=== PATIENT | female | born 1945 | race Caucasian/White ===

== ENCOUNTER → 2017-04-17 16:33 | Outpatient (CLI) | payer MEDICARE, OTHER ==
[2014-05-06 12:25] VITALS: BMI 33.7
[~2017-04-17 16:33] MED LIST: ACETAMINOPHEN500 M1 PO; ACIDOPHILUS LAC1 CAP PO; AMITIZA24 MCG PO; BEPREVE10 ML EACH EYE; BIOTIN5 MG PO; CALCIUM 600+D T1 TA1 PO; CEREFOLIN TAB1 TAB PO; CINNAMON500 MG PO; DEXILANT60 MG PO; DURAGESIC1 PATCH .1 TRANSDERM; FISH OIL 1,0001 CA1 PO; GLUCOPHAGE850 MG PO; GLUCOSAMINE HC500 MG PO; HYDROCODON-ACE1 EAC7 PO; INDERAL 40 MG T40 MG PO; LASIX20 MG PO; LIDODERM 5 %1 PATCH TRANSDERM; LYRICA50 MG PO; METROGEL 0.75 %45 GM TOPICAL; MILK THISTLE140 MG PO; MUCINEX600 MG PO; NEURONTIN 300300 MG PO; NIZORAL 2 % CRE15 GM TOPICAL; NYSTATIN OINTME15 GM TOPICAL; OCUVITE TABLET1 TA1 PO; OSCIMIN0.125 M1 PO; PHAZYME180 MG PO; PHENERGAN25 M1 PO; POTASSIUM CHLO10 ME1 PO; REQUIP1 MG PO; SYNTHROID125 MCG PO; TRIAMTERENE-HCT1 TA1 PO; VOLTAREN100 GM TOPICAL; ZOFRAN4 MG PO; ZYLOPRIM100 MG
== END | disposition home or self-care (01) ==
LOC: D.MAMMO 11:30
DX: Z12.31 Encounter for screening mammogram for malignant neoplasm of breast (principal)

== ENCOUNTER → 2017-09-07 09:01 | Outpatient (CLI) | payer MEDICARE, OTHER ==
[2014-05-06 12:25] VITALS: BMI 33.7
== END | disposition home or self-care (01) ==
LOC: D.MRI 09-06 08:00 → D.LAB 09:01 → D.MRI 10:00
DX: S06.0X9A Concussion with loss of consciousness of unspecified duration, initial encounter (principal); X58.XXXA Exposure to other specified factors, initial encounter; R51 Headache

== ENCOUNTER → 2018-02-22 13:39 | Outpatient (CLI) | payer MEDICARE, OTHER ==
[2014-05-06 12:25] VITALS: BMI 33.7
== END | disposition home or self-care (01) ==
LOC: D.CT 02-21 13:30
DX: R10.9 Unspecified abdominal pain (principal)

== ENCOUNTER → 2018-04-16 08:59 | Outpatient (CLI) | payer MEDICARE, OTHER ==
[2014-05-06 12:25] VITALS: BMI 33.7
[2018-04-16 09:44] LABS: ALBUMIN 3.6 g/dL (3.4-5.0); BILIRUBIN - DIRECT 0.23 mg/dL (0.00-0.30); BILIRUBIN - INDIRECT 0.74 mg/dL (0.00-1.00); BILIRUBIN - TOTAL 0.97 mg/dL (0.2-1.3); PROTEIN - SERUM 7.5 g/dL (6.4-8.2)
== END | disposition home or self-care (01) ==
LOC: D.LAB 08:30 → D.US 09:30
PROVIDERS: ATTEND Internal Medicine Gastroenterology
DX: R16.2 Hepatomegaly with splenomegaly, not elsewhere classified (principal); R19.7 Diarrhea, unspecified

== ENCOUNTER → 2018-04-26 08:00 | Outpatient (CLI) | payer MEDICARE, OTHER ==
[2014-05-06 12:25] VITALS: BMI 33.7
== END | disposition home or self-care (01) ==
LOC: D.MAMMO 04-19 09:45
PROVIDERS: ATTEND Family Medicine
DX: Z12.31 Encounter for screening mammogram for malignant neoplasm of breast (principal)

== ENCOUNTER → 2018-07-05 12:33 | Outpatient (CLI) | payer MEDICARE, OTHER ==
[2014-05-06 12:25] VITALS: BMI 33.7
== END | disposition home or self-care (01) ==
LOC: D.MRI 12:33
PROVIDERS: ATTEND Family Medicine
DX: M25.511 Pain in right shoulder (principal)

== ENCOUNTER 2018-07-09 04:46 | Day surgery (SDC) | payer MEDICARE, OTHER ==
[~2018-07-09 04:46] MED LIST changes: +HYDROCHLOROTHIAZIDE PO; +MILK THISTL PO; -MILK THISTLE140 MG PO; -REQUIP1 MG PO; +REQUIP5 MG PO; +TRIAMTERENE PO; -TRIAMTERENE-HCT1 TA1 PO; -ZYLOPRIM100 MG; +ZYLOPRIM100 MG PO
[2018-07-09 05:44] LABS: HEMATOCRIT 36.6 % (36.0-48.0); HEMOGLOBIN 12.7 g/dL (12-16); MCH 30.8 pg (26.0-34.0); MCHC 34.7 g/dL (31.0-37.0); MCV 88.6 fL (80.0-100.0); MEAN PLATELET VOLUME 10.2 fL (7.4-10.4); RBC 4.13 10x6/uL (4.00-5.40); RDW 12.8 % (11.5-14.5); WBC 9.2 10x3/uL (4.8-10.8)
[2018-07-09 06:07] LABS: ANION GAP 12.7 mmol/L (8-16); CALCIUM 9.1 mg/dL (8.5-10.1); CARBON DIOXIDE 29.4 mmol/L (21.0-32.0); CREATININE - SERUM 0.8 mg/dL (0.6-1.3); POTASSIUM - SERUM 4.1 mmol/L (3.5-5.1)
[2018-07-09 06:25] VITALS: BP 187/77; BMI 28.4
--- NOTE | 2018-07-09 09:15 | NUR ---
DC INSTRUCTIONS GIVEN TO PT/FAMILY. STATE UNDERSTANDING. DC'D IV CATH FULLY INTACT.
--- NOTE | 2018-07-09 09:25 | NUR ---
PT LEFT UNIT VIA PERSONAL WC AT 4814
--- NOTE | 2018-07-29 19:28 | OP ---
PATIENT NAME: ANATOLIY RAMIREZ MEDICAL RECORD: [id number] :46 LOCATION:D.[facility] ADMISSION DATE: SURGEON: SAMIR ESPAÑA MD DATE OF OPERATION: 07/09/2018 PROCEDURE: EGD with balloon dilatation, EGD with biopsy. SCOPE: An Olympus video gastroscope and a CRE Microvasive balloon from 45-60 Algerian. MEDICATIONS: Per TIVA anesthesia. The patient received 100 mg of propofol for this procedure. FINDINGS: Informed consent was given. The patient was made comfortable with the above medications. After reaching an adequate level of sedation by slow IV push, the patient was placed on her left side. The endoscope was then advanced under direct visualization through the posterior pharyngeal area and advanced to the distal esophagus. A stenotic esophageal stricture was observed and after the inspection, part of the EGD was completed. A CRE microvasive balloon was placed in this area, dilated to 60-Algerian, held in place for 1 minute without complication. The patient also had erosions at this area and biopsies were obtained. On entering the stomach, in the body of the stomach, the patient had some erosions. She also had a few very small nonhemorrhagic erosions at the antral area and a histopathology Helicobacter pylori biopsy was obtained in this area. The duodenal bulb to the second portion had mild inflammation present. Biopsies were obtained of this inflamed area, which as mentioned above were very mild in degree, however, we also biopsied due to the history of diarrhea looking for eosinophilic gastroenteritis, Crohn disease, celiac sprue, or parasites. The scope was then withdrawn. IMPRESSION: 1. Distal esophageal stricture dilated to 60-Algerian without complication. 2. Erosive esophagitis, biopsied. 3. Erosive gastritis, biopsied. 4. Duodenitis, biopsied, the second portion of the duodenum. PLAN: 1. Dexilant 60 mg 1 p.o. q.a.m. to continue. 2. Famotidine 20 mg p.o. at bedtime. 3. The patient to follow reflux precautions stringently, both dietary and positional. 4. CAUTION WITH ANTI-INFLAMMATORY DRUGS. THE PATIENT MENTIONS THIS AN ALLERGY, SO THIS SHOULD NOT BE A PROBLEM. 5. Return to clinic on a p.r.n. basis. 6. Check the path reports. TRANSINT:[id number] Voice Confirmation ID: [id number] DOCUMENT ID: [id number] OPERATIVE REPORT [id number] ANATOLIY RAMIREZ BRENDA MD at 1928 CC: FRANCISCO COREA [id number] DICTATION DATE: 07/09/18 0837 SUPERVISOR PAINTING: 07/09/[address] [facility] 07/09/18 [facility] [address] [place] [address]
== END 2018-07-09 09:24 | disposition home or self-care (01) ==
LOC: D.OPS 04:46
PROVIDERS: Anesthesiology; ATTEND Internal Medicine Gastroenterology
DX: K22.2 Esophageal obstruction (principal); K22.10 Ulcer of esophagus without bleeding; K29.00 Acute gastritis without bleeding; Z01.812 Encounter for preprocedural laboratory examination

== ENCOUNTER → 2018-10-11 13:24 | Outpatient (CLI) | payer MEDICARE, OTHER ==
[~2018-10-11 13:24] MED LIST changes: +GRAPE SEED COMPLEX PO; +MAGNESIUM OXID500 MG PO; +PEPCID AC20 MG PO; +STOOL SOFTENER100 M1 PO; +TUMERIC COMPLEX PO; +TYLENOL ARTHRI650 MG PO; +VITAMIN B12 PO; +[UNRECOGNIZED DRUG - OTHER] PO
== END | disposition home or self-care (01) ==
LOC: D.MRI 13:24
PROVIDERS: ATTEND Clinical Nurse Specialist Family Health
DX: M25.562 Pain in left knee (principal)

== ENCOUNTER 2018-10-28 10:14 | Day surgery (SDC) | payer MEDICARE, OTHER ==
[~2018-10-28] VITALS: Ht 160 cm; Wt 72.7 kg
[~2018-10-28 10:14] MED LIST changes: -GRAPE SEED COMPLEX PO; -MAGNESIUM OXID500 MG PO; -PEPCID AC20 MG PO; -STOOL SOFTENER100 M1 PO; -TUMERIC COMPLEX PO; -TYLENOL ARTHRI650 MG PO; -VITAMIN B12 PO; -[UNRECOGNIZED DRUG - OTHER] PO
[2018-10-28 10:52] LABS: HEMATOCRIT 39.7 % (36.0-48.0); HEMOGLOBIN 14.1 g/dL (12-16); MCH 31.2 pg (26.0-34.0); MCHC 35.5 g/dL (31.0-37.0); MCV 87.8 fL (80.0-100.0); MEAN PLATELET VOLUME 9.8 fL (7.4-10.4); RBC 4.52 10x6/uL (4.00-5.40); RDW 12.7 % (11.5-14.5); WBC 9.4 10x3/uL (4.8-10.8)
[2018-10-28 11:02] LABS: ANION GAP 10.3 mmol/L (8-16); CALCIUM 9.3 mg/dL (8.5-10.1); CREATININE - SERUM 0.8 mg/dL (0.6-1.3); POTASSIUM - SERUM 4.3 mmol/L (3.5-5.1)
[2018-10-28] MEDS ORDERED: STOOL SOFTENER100 M1 PO (11:28)
[2018-10-28] MEDS ORDERED: INDERAL 40 MG T40 MG PO (11:28)
[2018-10-28] MEDS ORDERED: TYLENOL ARTHRI650 MG PO (11:30)
[2018-10-28] MEDS ORDERED: ZOFRAN4 MG PO (11:30)
[2018-10-28] MEDS ORDERED: [UNRECOGNIZED DRUG - OTHER] PO (11:31)
[2018-10-28] MEDS ORDERED: PEPCID AC20 MG PO (11:31)
[2018-10-28] MEDS ORDERED: PHAZYME180 MG PO (11:32)
[2018-10-28] MEDS ORDERED: MAGNESIUM OXID500 MG PO (11:33)
[2018-10-28] MEDS ORDERED: GRAPE SEED COMPLEX PO (11:33)
[2018-10-28] MEDS ORDERED: TUMERIC COMPLEX PO (11:34)
[2018-10-28] MEDS ORDERED: VITAMIN B12 PO (11:35)
[2018-10-28 11:55] VITALS: BP 160/73; Ht 160 cm; Wt 72.7 kg
--- NOTE | 2018-10-28 15:25 | NUR ---
PATIENT TOLERATED FULL LIQUID DIET POST OP. IV REMOVED WITH NO COMPLAINTS. MV
--- NOTE | 2018-10-31 07:40 | OP ---
PATIENT NAME: ANATOLIY RAMIREZ MEDICAL RECORD: [id number] :46 LOCATION:D.[facility] ADMISSION DATE: SURGEON: CHENTE JOHN DO DATE OF OPERATION: 10/28/2018 PROCEDURE: Colonoscopy with biopsies. INDICATIONS FOR PROCEDURE: Personal history of colon polyps, diarrhea, diverticulosis. SCOPE: [employer] video pediatric colonoscope. MEDICATIONS: Propofol 360 mg IV per anesthesia. WITHDRAWAL TIME: 13 minutes. ESTIMATED BLOOD LOSS: Minimal. COMPLICATIONS: None. FINDINGS: Informed consent was given. The patient was made comfortable with the above medication. After reaching an adequate level of sedation by slow IV push, the patient was placed on her left side. A digital rectal examination was performed and was normal. The endoscope was advanced under direct visualization through the rectum to the cecum, confirmed by the presence of the appendiceal orifice and ileocecal valve. The endoscope was slowly withdrawn and mucosa was carefully examined. Prep quality was good. There were no polyps visualized on today's examination. There were a few mild diverticula visualized in the descending and sigmoid colon. There was no evidence of diverticulitis. Random biopsies were taken to rule out microscopic colitis and stool was collected to rule out infectious colitis. Retroflexion was performed in the rectum with a normal appearing rectal wall visualized. The endoscope was withdrawn from the patient. The patient tolerated the procedure well and there were no complications. IMPRESSION: 1. Mild diverticulosis of the descending and sigmoid colon. 2. Otherwise, normal colonoscopy. Biopsies were taken randomly and stool was collected. PLAN AND RECOMMENDATIONS: 1. Discharge home when recovery parameters are met. 2. Follow up biopsy specimen results. 3. High fiber diet. 4. Continue current medications. 5. Recall colonoscopy in 5 years based on personal history of polyps. 6. Follow up in the GI clinic in 2-3 weeks, so that biopsies and stool studies can be reviewed prior to any further prescription for symptomatic management of diarrhea. TRANSINT:[id number] Voice Confirmation ID: [id number] DOCUMENT ID: [id number] OPERATIVE REPORT [id number] ANATOLIY RAMIREZ CHENTE JOHN DO at 0740 CC: [id number] DICTATION DATE: 10/28/18 1348 EMERGENCY SPECIALIST: 10/28/18 1357 [facility] 10/28/18 [id number] [place] [address]
== END 2018-10-28 15:20 | disposition home or self-care (01) ==
LOC: D.OPS 10:14
PROVIDERS: Anesthesiology; ATTEND Internal Medicine Gastroenterology
DX: K57.30 Diverticulosis of large intestine without perforation or abscess without bleeding (principal); Z86.010 Personal history of colon polyps; Z01.812 Encounter for preprocedural laboratory examination

== ENCOUNTER → 2018-11-26 17:08 | Outpatient (CLI) | payer MEDICARE, OTHER ==
[2018-10-28 11:55] VITALS: BMI 28.4
[~2018-11-26 17:08] MED LIST changes: +GRAPE SEED COMPLEX PO; +MAGNESIUM OXID500 MG PO; +PEPCID AC20 MG PO; +STOOL SOFTENER100 M1 PO; +TUMERIC COMPLEX PO; +TYLENOL ARTHRI650 MG PO; +VITAMIN B12 PO; +[UNRECOGNIZED DRUG - OTHER] PO
[2018-11-26 17:50] LABS: BASOPHILS 0.4 % (0-2); EOSINOPHILS 2.5 % (0-7); HEMATOCRIT 38.3 % (36.0-48.0); HEMOGLOBIN 12.8 g/dL (12-16); IMMATURE GRANULOCYTES 0.3 % (0-5); LYMPHOCYTES 23.8 % (15-50); MCH 31.4 pg (26.0-34.0); MCHC 33.4 g/dL (31.0-37.0); MCV 93.9 fL (80.0-100.0); MEAN PLATELET VOLUME 11.1 fL (7.4-10.4); MONOCYTES 6.3 % (2-11); NEUTROPHILS 66.7 % (40-80); PLATELET COUNT 279 10x3/uL (130-400); RBC 4.08 10x6/uL (4.00-5.40); RDW 13.3 % (11.5-14.5); WBC 7.7 10x3/uL (4.8-10.8)
[2018-11-26 19:21] LABS: ERYTHROCYTE SEDIMENTATION RATE 25 mm/hr (0-30)
== END | disposition home or self-care (01) ==
LOC: D.LABREF 17:08
PROVIDERS: ATTEND Clinical Nurse Specialist Family Health
DX: M79.672 Pain in left foot (principal)

== ENCOUNTER → 2018-12-06 08:54 | Outpatient (CLI) | payer MEDICARE, OTHER ==
[2018-10-28 11:55] VITALS: BMI 28.4
== END | disposition home or self-care (01) ==
LOC: D.RAD 08:54
PROVIDERS: ATTEND Internal Medicine Gastroenterology
DX: R13.10 Dysphagia, unspecified (principal); K21.9 Gastro-esophageal reflux disease without esophagitis

== ENCOUNTER → 2018-12-17 10:13 | Outpatient (CLI) | payer MEDICARE, OTHER ==
[2018-10-28 11:55] VITALS: BMI 28.4
== END | disposition home or self-care (01) ==
LOC: D.MRI 10:13
PROVIDERS: ATTEND Clinical Nurse Specialist Family Health
DX: M85.641 Other cyst of bone, right hand (principal)

== ENCOUNTER 2019-04-13 13:26 | Emergency (ER) | payer MEDICARE, OTHER ==
[~2019-04-13] VITALS: Ht 160 cm; Wt 78.2 kg
[2019-04-13 13:39] VITALS: BP 179/84; Ht 160 cm; Wt 78.2 kg
== END 2019-04-13 18:35 | disposition home or self-care (01) ==
LOC: D.ER 13:26
DX: S00.12XA Contusion of left eyelid and periocular area, initial encounter (principal); S16.1XXA Strain of muscle, fascia and tendon at neck level, initial encounter; R51 Headache; E11.40 Type 2 diabetes mellitus with diabetic neuropathy, unspecified; E07.9 Disorder of thyroid, unspecified; I10 Essential (primary) hypertension; K21.9 Gastro-esophageal reflux disease without esophagitis; Z79.84 Long term (current) use of oral hypoglycemic drugs; W19.XXXA Unspecified fall, initial encounter; Y93.9 Activity, unspecified; Y92.9 Unspecified place or not applicable